=== PATIENT | male | born 1990 | race Native Hawaiian/Other Pacific Islander ===

== ENCOUNTER → 2017-06-04 | Outpatient (CLI) | payer BC ==
[~2017-06-04] MED LIST: ADRENACLICK IM; ARGININE; PERCOCET 325 MG1 TA2 PO; PREDNISONE20 MG PO; [UNRECOGNIZED DRUG - OTHER] PO
== END ==
LOC: COL.RAD 10:49
DX: Q27.39 Arteriovenous malformation, other site (principal)
CPT/HCPCS: Q9967

== ENCOUNTER 2017-07-07 07:59 | Day surgery (SDC) | payer BC ==
[~2017-07-07] VITALS: Ht 175.3 cm; Wt 89.6 kg
[2017-07-07] VITALS (9 sets, daily range): BP systolic 120–126; BP diastolic 51–83; PULSE 60–68; TEMP 98.7
[2017-07-07] MEDS ORDERED: LEXAPRO 10MG10 MG PO (08:42)
[2017-07-07 08:46] LABS: HEMATOCRIT 47.5 % (42.0-52.0); HEMOGLOBIN 15.8 g/dl (13.5-18.0); MEAN CELL VOLUME 83 fl (80.0-100.0); MEAN CORPUSCULAR HEMOGLOBIN 28 pg (27.0-31.0); MEAN CORPUSCULAR HGB CONC 33 g/dl (33.0-37.0); MEAN PLATELET VOLUME 9.3 fl (7.4-10.4); PLATELET COUNT 380 K/mm3 (130-400); RED BLOOD COUNT 5.75 M/mm3 (4.20-5.60); REDCELL DISTRIBUTION WIDTH-CV 14.9 % (11.5-14.5)
[2017-07-07 08:53] LABS: INR 1.1 (0.8-3.0); PROTHROMBIN TIME 12.4 SECONDS (9.7-12.8)
[2017-07-07 08:55] LABS: CREATININE, serum 0.94 mg/dL (0.66-1.25)
== END 2017-07-07 15:07 | disposition home or self-care (01) ==
LOC: COL.CAR 07:59
PROVIDERS: Radiology Diagnostic Radiology
DX: Q27.39 Arteriovenous malformation, other site (principal); I10 Essential (primary) hypertension; F41.9 Anxiety disorder, unspecified
CPT/HCPCS: J2250; J2270; J2704; J3010; J7120